=== PATIENT | male | born 1970 | race Caucasian/White ===

== ENCOUNTER 2023-01-24 07:32 | Outpatient (AMB) | payer OTHER, SELFPAY ==
[2023-01-24 07:47] VITALS: BP 128/88; PULSE 74; RESP 20; O2SAT 97; BMI 35.1
--- NOTE | 2023-01-24 07:47 | MHC.PC.OV ---
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 Pt was diagnosed with prostate ca in November and f/u with [facility]. He has been discussing option for treatment and is awaiting a 2nd opinion consultation at [facility] Family History Father Cardiac pacemaker BPH (benign prostatic hyperplasia) Mother No problems noted. Brother COVID Sister No problems noted. Sister No problems noted. 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 1. Little interest or pleasure in doing things: not at all 2. Feeling down, depressed, or hopeless: not at all 3. Trouble falling or staying asleep, or sleeping too much: not at all 4. Feeling tired or having little energy: not at all 5. Poor appetite or overeating: not at all 6. Feeling bad about yourself - or that you are a failure or have let yourself or your family down: not at all 7. Trouble concentrating on things, such as reading the newspaper or watching television: not at all 8. Moving or speaking so slowly that other people could have noticed. Or the opposite - being so fidgety or restless that you have been moving around a lot more than usual: not at all 9. Thoughts that you would be better off or of hurting yourself in some way: not at all Total score: 0 Depression Screening Interpretation: Negative [id number] - PHQ-9 Billing: Yes Source: Developed by Drs. Valeriano Garcia, Eneida Mendez, Jose Martin Mtz and colleagues, with an educational contreras from [employer]. Thrive Questionnaire Date Thrive assessed: 01/24/23 I am a: Patient What is your living situation today?: I have a steady place to live Within the past 12 months, did the food you bought not last and you didn't have the money to get more?: Never true Within the past 12 months, did you worry whether your food would run out before you got money to buy more?: Never true Do you have trouble paying for medicines?: No Do you have trouble getting transportation to medical appointments?: No Do you have trouble paying your heating and electricity bill?: No Do you have trouble taking care of your child, family member or friend?: No Do you have trouble with day-to-day activities such as bathing, preparing meals, shopping, managing finances, etc.?: No Are you currently unemployed and looking for a job?: No Are you interested in more education?: No Please select the resources that you would like help with: None Currently or been in a relationship where the following occur: no concerns reported AUDIT C Alcohol Use Questionnaire (AUDIT-C) 1. How often do you have a drink containing alcohol?: 2-4 times a month 2. How many drinks containing alcohol do you have on a typical day when you are drinking?: 3 or 4 3. How often do you have six or more drinks on one occasion?: Never Total Score: 3 ROSSANA-7 AMB Questionnaire ROSSANA-7 Date ROSSANA - 7 assessed: 01/24/23 Feeling nervous, anxious, or on edge: 0 = Not at all Not being able to stop or control worryin = Not at all Worrying too much about different things: 0 = Not at all Trouble relaxin = Not at all Being so restless that it is hard to sit still: 0 = Not at all Becoming easily annoyed or irritable: 0 = Not at all Feeling afraid as if something awful might happen: 0 = Not at all Total ROSSANA-7 score (0-4 normal; 5-9 mild; 10-14 moderate; 15-21 severe): 0 Source: Developed by Drs. Valeriano Garcia, Eneida Mendez, Jose Martin Mtz and colleagues, with an educational contreras from [employer]. ROSSANA-7 Assessment Billing ROSSANA-7 Assessment Tool: ROSSANA-7 Assessment 62567 Review of Systems Const All systems reviewed & are unremarkable except as noted in HPI and below Reports no additional complaints Eyes Reports no additional complaints ENT Reports no additional complaints Card Reports no additional complaints Resp Reports no additional complaints GI Reports no additional complaints Reports no additional complaints Musc Reports no additional complaints Physical exam (Primary Care) Vital Signs: Last Vital Signs Pulse 74 01/24/23 07:47 Resp 20 01/24/23 07:47 BP 128/88 01/24/23 07:47 Pulse Ox 97 01/24/23 07:47 Oxygen Delivery Method Room Air 01/24/23 07:47 BMI result Body Mass Index 35.1 Tobacco/Smoking Status: Tobacco use Status Tobacco use date assessed 01/24/23 01/24/23 07:56 Patient Tobacco Use Status Former Tobacco user 01/24/23 08:18 Tobacco use type Cigarette 01/24/23 08:18 e-Cigarette/Vaping Use Never Used 01/24/23 08:18 PHQ-9: PHQ-9 Score PHQ-9: Total score 0 01/24/23 08:08 Depression Screening Interpretation: Negative Thrive Assessment: Date of Thrive Assessment Date Thrive assessed 01/24/23 01/24/23 08:00 Currently or been in a relationship where the following occur: no concerns reported Const General: no acute distress HENMT Head: Yes normal to inspection Ears: hearing grossly normal bilaterally Face and sinus: Yes normal facial exam Mouth: Normal oral and palatal mucosa present Throat: Yes posterior oropharynx normal Eyes General: appearance normal, both eyes and all related structures Neck Neck: Yes no lymphadenopathy and Yes supple Resp Effort & Inspection: normal respiratory effort Auscultation: clear to auscultation bilaterally Cardio Rhythm: regular rhythm Heart sounds: S1 normal heart sound present and S2 normal heart sound present GI Inspection: Yes normal to inspection Palpation (GI): Soft to palpation Percussion: Yes normal to percussion Auscultation: normal bowel sounds Assessment and Plan Assessment & Plan (1) Prostate CA: Comment: f/u [facility] urology dxd 11/24 Code(s): C61 - Malignant neoplasm of prostate (2) Annual physical exam: Code(s): Z00.00 - Encounter for general adult medical examination without abnormal findings Plan: Well-balanced diet regular physical activity weight loss discussed with the patient. He had a blood work done this year and will obtain copy of the results and forward to the office. Patient will be referred to GI for colonoscopy preferable before starting treatment for prostate ca. Follow-up in 6 months or as needed (3) GERD (gastroesophageal reflux disease): Comment: once a week, EGD 6 years ago Code(s): K21.9 - Gastro-esophageal reflux disease without esophagitis Orders: Referrals Gastroenterology Referral C61 - Malignant neoplasm of prostate, Z00.00 - Encounter for general adult medical examination without abnormal findings Coding Level of Care Code New Pt Prev Care 40-64y(26717) Diagnoses Prostate CA C61 Annual physical exam Z00.00 GERD (gastroesophageal reflux disease) K21.9 Additional Codes ROSSANA-7 Assessment Billing - ROSSANA-7 Assessment Tool: ROSSANA-7 Assessment 35138 ([id number])
== END 2023-01-24 10:09 | disposition home or self-care (01) ==
PROVIDERS: Visit Provider Internal Medicine
DX: C61 Malignant neoplasm of prostate (principal); Z00.00 Encounter for general adult medical examination without abnormal findings; K21.9 Gastro-esophageal reflux disease without esophagitis
CPT/HCPCS: 99386

== ENCOUNTER 2023-02-28 12:47 | Outpatient (AMB) | payer OTHER, SELFPAY ==
[2023-02-28 12:55] VITALS: BP 131/85; PULSE 91; BMI 34.8
--- NOTE | 2023-02-28 12:55 | A.OFFVIS_ITS ---
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 CC: Patient's reports that the PT was diagnosed with pancreatic cancer by the end of November. Patient has never had a colonoscopy done before. 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 Primarily Lao speaking but understands S[place] T[place]an and accompanying him helps with interpretation as well. Patient is at average risk of colon cancer due to no family history of colon cancer or colon polyps in first degree relatives. Patient does not have any other gastrointestinal symptoms to include abdominal pain, nausea, vomiting, diarrhea, blood in stool, weight loss. Labs not available but pt reports having blood work done earlier this year at outside office and does not report anemia. He was also recently diagnosed with prostate ca and is scheduled to meet with his Urologist to go over tx options between surg vs XRT. PFSH Surgical History H/O shoulder surgery Family History Father Cardiac pacemaker BPH (benign prostatic hyperplasia) Mother No problems noted. Brother COVID Sister No problems noted. Sister No problems noted. 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 Current occupational exposures/hazards: No Cognitive needs: No Hearing needs: No Vision needs: No Review of Systems Const All systems reviewed & are unremarkable except as noted in HPI and below Physical Exam Vital Signs: Last Vital Signs Pulse 91 02/28/23 12:55 BP 131/85 10/27/23 12:55 BMI result Body Mass Index 34.8 Gen appear: NAD, well nourished HEENT: no icterus, no cervical lymphadenopathy Chest: clear to auscultation CVS: Regular S1/S2 Abd: soft, nontender, nondistended Ext: no peripheral edema Neuro: A/Ox3, noted to move all extremities spontaneously Assessment & Plan Assessment & Plan (1) Colon cancer screening: Code(s): Z12.11 - Encounter for screening for malignant neoplasm of colon (2) Prostate CA: Code(s): C61 - Malignant neoplasm of prostate Plan At average risk. Would recommend a screening colonoscopy to be booked. Pt aware that this will be booked on an elective basis. In the absence of any GI sx this should not have any bearing on his evaluation and tx for prostate ca. Split PEG prep instructions reviewed with the pt as well as his . Follow up after the colo as needed. Medications: New peg 3350-electrolytes 236-22.74-6.74 -5.86 gram (Golytely) as per split prep instructions, until fecal effluent is clear 240 mL PO Q10M 4,000 mL 0RF colonoscopy Coding Level of Care Code New Pt Level 4 (53934) Diagnoses Colon cancer screening Z12.11 Prostate CA C61
== END 2023-02-28 13:54 | disposition home or self-care (01) ==
PROVIDERS: PCP Internal Medicine; Visit Provider Internal Medicine
DX: Z12.11 Encounter for screening for malignant neoplasm of colon (principal); C61 Malignant neoplasm of prostate; Z01.818 Encounter for other preprocedural examination
CPT/HCPCS: 99204

== ENCOUNTER → 2023-02-28 12:47 | Outpatient (BNVA) | payer OTHER, SELFPAY | PROVIDERS: PCP Internal Medicine; Visit Provider Internal Medicine ==

== ENCOUNTER 2023-06-20 08:36 | Outpatient (AMB) | payer OTHER, SELFPAY ==
[2023-06-20 09:02] VITALS: BP 136/70; PULSE 91; TEMP 36.6; O2SAT 96; BMI 34.4
--- NOTE | 2023-06-20 09:02 | MHC.OFFWIV ---
Intake Vital Signs 06/20/23 09:02 Height 5 ft 11 in Weight 247 lb BMI 34.4 BP 136/70 Blood Pressure Location Lt brachial Position Sitting Pulse 91 Pulse Source Pulse Oximeter Temp 97.8 F Temp Source Temporal Artery Scan Pulse Oximetry (%) 96 Oxygen Delivery Method Room Air Intake Visit Reasons: EST/prostate surgery insc not healing(lobby) Intake Note: pt is here today for prostate surgery insc not healing Patient Tobacco Use Status: Former Tobacco user Allergies No Known Allergies Allergy (Verified 06/20/23 09:02) Do you need a note to return to daycare/school/sports/work: No HPI HPI Comments History of Present Illness Details 53 y/o male patient who presents to walk in clinic with c/o non-healing infected surgical incision on the abdomen. Pt had Lap prostatectomy 5 weeks ago for prostate CA. He has umbilical incision that is not healing well and infected, draining pus. He has an Appointment with [facility] Denies any systemic symptoms. Denies pain. [facility] Surgical History H/O shoulder surgery Family History Father Cardiac pacemaker BPH (benign prostatic hyperplasia) Mother No problems noted. Brother COVID Sister No problems noted. Sister No problems noted. 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 Current occupational exposures/hazards: No Cognitive needs: No Hearing needs: No Vision needs: No Review of Systems Const All systems reviewed & are unremarkable except as noted in HPI and below Physical Exam Vital Signs: Last Vital Signs Temp 97.8 F 06/20/23 09:02 Pulse 91 06/20/23 09:02 BP 136/70 06/20/23 09:02 Pulse Ox 96 06/20/23 09:02 Oxygen Delivery Method Room Air 06/20/23 09:02 BMI result Body Mass Index 34.4 Const General: comfortable and no acute distress Nutritional Appearance: overweight GI Inspection: Yes obesity Auscultation: normal bowel sounds Skin Other: Umbilical incision, red, swelling and pus drainage. Crusting yellow. Non tender. General skin exam: erythema and eschar Wounds: wounds noted (Abdomen - Other Trocar sites healing well) Assessment & Plan Assessment & Plan (1) Infected surgical wound: Code(s): T81.49XA - Infection following a procedure, other surgical site, initial encounter Plan: - Oral and Topical ABx -F/u with surgeon as scheduled - RTC with severe pain, nausea, vomiting, and high fevers Medications: New mupirocin 2% 1 appl topical BID 15 grams 0RF T81.49XA - Infection following a procedure, other surgical site, initial encounter doxycycline hyclate 100 mg PO BID 5 days 10 caps 0RF T81.49XA - Infection following a procedure, other surgical site, initial encounter Coding Level of Care Code Est Pt Level 3 (21273) Diagnoses Infected surgical wound T81.49XA Time Spent (min) 15
== END 2023-06-20 09:26 | disposition home or self-care (01) ==
PROVIDERS: PCP Internal Medicine; Visit Provider Nurse Practitioner Family
DX: T81.49XA Infection following a procedure, other surgical site, initial encounter (principal)
CPT/HCPCS: 99213

== ENCOUNTER 2023-07-28 09:52 | Outpatient (AMB) | payer OTHER, SELFPAY ==
[2023-07-28 10:06] VITALS: BP 120/78; PULSE 72; O2SAT 97; BMI 34.4
--- NOTE | 2023-07-28 10:06 | A.OFFPC_ITS ---
Vital Signs 07/28/23 10:06 Height 5 ft 11 in Weight 247 lb BMI 34.4 BP 120/78 Blood Pressure Location Lt brachial Position Sitting Pulse 72 Pulse Source Pulse Oximeter Pulse Oximetry (%) 97 Oxygen Delivery Method Room Air Intake Visit Reasons: 6 month fu Intake Note: Pt is here today for 6 months follow up visit. Pt is fasting today and would like to have blood work done. Allergies No Known Allergies Allergy (Verified 07/28/23 10:09) Medication List - Last Reconciled 07/28/23 by Soniya Cueva MD No Known Home Meds Tobacco use date assessed: 07/28/23 Dental Screening Dental Screen Date: 07/28/23 Did you have a dental visit in the last 12 months?: Yes Did you have a dental problem in the last 6 months where you did not have access to dental care?: No Was dental information given to patient?: Patient has dentist HPI 6 month fu HPI Details Pt presents for f/u prostatectomy at [facility] and will f/u with urology there. [facility] Surgical History H/O shoulder surgery Family History Father Cardiac pacemaker BPH (benign prostatic hyperplasia) Mother No problems noted. Brother COVID Sister No problems noted. Sister No problems noted. 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 1. Little interest or pleasure in doing things: not at all 2. Feeling down, depressed, or hopeless: not at all 3. Trouble falling or staying asleep, or sleeping too much: not at all 4. Feeling tired or having little energy: not at all 5. Poor appetite or overeating: not at all 6. Feeling bad about yourself - or that you are a failure or have let yourself or your family down: not at all 7. Trouble concentrating on things, such as reading the newspaper or watching television: not at all 8. Moving or speaking so slowly that other people could have noticed. Or the opposite - being so fidgety or restless that you have been moving around a lot more than usual: not at all 9. Thoughts that you would be better off or of hurting yourself in some way: not at all Total score: 0 Depression Screening Interpretation: Negative Depression Screening Done: Yes Source: Developed by Drs. Valeriano Garcia, Eneida Mendez, Jose Martin Mtz and colleagues, with an educational contreras from [employer]. Thrive Questionnaire Date Thrive assessed: 07/28/23 I am a: Patient What is your living situation today?: I have a steady place to live Within the past 12 months, did the food you bought not last and you didn't have the money to get more?: Never true Within the past 12 months, did you worry whether your food would run out before you got money to buy more?: Never true Do you have trouble paying for medicines?: No Do you have trouble getting transportation to medical appointments?: No Do you have trouble paying your heating and electricity bill?: No Do you have trouble taking care of your child, family member or friend?: No Do you have trouble with day-to-day activities such as bathing, preparing meals, shopping, managing finances, etc.?: No Are you currently unemployed and looking for a job?: No Are you interested in more education?: No Please select the resources that you would like help with: None Currently or been in a relationship where the following occur: no concerns reported THRIVE Score: 0 AUDIT C Alcohol Use Questionnaire (AUDIT-C) 1. How often do you have a drink containing alcohol?: Monthly or less 2. How many drinks containing alcohol do you have on a typical day when you are drinking?: 1 or 2 3. How often do you have six or more drinks on one occasion?: Never Total Score: 1 ROSSANA-7 AMB Questionnaire ROSSANA-7 Date ROSSANA - 7 assessed: 07/28/23 Feeling nervous, anxious, or on edge: 0 = Not at all Not being able to stop or control worryin = Not at all Worrying too much about different things: 0 = Not at all Trouble relaxin = Not at all Being so restless that it is hard to sit still: 0 = Not at all Becoming easily annoyed or irritable: 0 = Not at all Feeling afraid as if something awful might happen: 0 = Not at all Total ROSSANA-7 score (0-4 normal; 5-9 mild; 10-14 moderate; 15-21 severe): 0 Source: Developed by Drs. Valeriano Garcia, Eneida Mendez, Jose Martin Mtz and colleagues, with an educational contreras from [employer]. Review of Systems Const All systems reviewed & are unremarkable except as noted in HPI and below Reports no additional complaints Eyes Reports no additional complaints ENT Reports no additional complaints Card Reports no additional complaints Resp Reports no additional complaints GI Reports no additional complaints Reports no additional complaints Physical exam (Primary Care) Vital Signs: Last Vital Signs Pulse 72 07/28/23 10:06 BP 120/78 07/28/23 10:06 Pulse Ox 97 07/28/23 10:06 Oxygen Delivery Method Room Air 07/28/23 10:06 BMI result Body Mass Index 34.4 Tobacco/Smoking Status: Tobacco use Status Tobacco use date assessed 07/28/23 07/28/23 10:11 Patient Tobacco Use Status Former Tobacco user 07/28/23 10:11 Tobacco use type Cigarette 07/28/23 10:11 e-Cigarette/Vaping Use Never Used 07/28/23 10:11 PHQ-9: PHQ-9 Score PHQ-9: Total score 0 07/28/23 10:38 Depression Screening Interpretation: Negative Thrive Assessment: Date of Thrive Assessment Date Thrive assessed 07/28/23 07/28/23 10:18 Currently or been in a relationship where the following occur: no concerns reported Const General: no acute distress HENMT Head: Yes normal to inspection Ears: hearing grossly normal bilaterally Mouth: Normal oral and palatal mucosa present Eyes General: appearance normal, both eyes and all related structures Neck Neck: Yes no lymphadenopathy and Yes supple Resp Effort & Inspection: normal respiratory effort Auscultation: clear to auscultation bilaterally Cardio Rhythm: regular rhythm Heart sounds: S1 normal heart sound present and S2 normal heart sound present GI Inspection: Yes normal to inspection Palpation (GI): Soft to palpation Percussion: Yes normal to percussion Auscultation: normal bowel sounds Assessment and Plan Assessment & Plan (1) Prostate CA: Comment: s/p prostatectomy 07/26 [facility] Code(s): C61 - Malignant neoplasm of prostate Plan: check PSA, f/u with urology (2) Annual physical exam: Code(s): Z00.00 - Encounter for general adult medical examination without abnormal findings Plan: Well-balanced diet regular physical activity weight loss discussed with the patient return for physical in 6 months. Patient have a fasting blood work today Orders: Orders Lipid Panel Today C61 - Malignant neoplasm of prostate, Z00.00 - Encounter for general adult medical examination without abnormal findings UA w Microscopic Today C61 - Malignant neoplasm of prostate, Z00.00 - Encounter for general adult medical examination without abnormal findings PSA,Total (Free>4and<10) Today C61 - Malignant neoplasm of prostate, Z00.00 - Encounter for general adult medical examination without abnormal findings Comprehensive [place]tuck. Panel Fast Today C61 - Malignant neoplasm of prostate, Z00.00 - Encounter for general adult medical examination without abnormal findings Complete Blood Count Auto Diff Today C61 - Malignant neoplasm of prostate, Z00.00 - Encounter for general adult medical examination without abnormal findings Coding Level of Care Code Est Pt Level 3 (58123) Diagnoses Prostate CA C61 Annual physical exam Z00.00
== END 2023-07-28 10:50 | disposition home or self-care (01) ==
PROVIDERS: PCP Internal Medicine; Visit Provider Internal Medicine
DX: C61 Malignant neoplasm of prostate (principal); Z00.00 Encounter for general adult medical examination without abnormal findings
CPT/HCPCS: 99213

== ENCOUNTER 2023-07-28 10:44 | Outpatient (REF) | payer OTHER, SELFPAY ==
[2023-07-28 13:54] LABS: Appearance Urine Clear; Color Urine Yellow; Glucose Urine UA Negative (Negative); Leukocyte Esterase Urine Small (1+) (Negative); Nitrite Urine Negative (Negative); PH 5.5 (5.0-9.0); UMIC TRIGGER UA YES; Urine Blood Negative (Negative); Urine Ketones Negative (Negative); Urine Protein Negative (Neg-Trace)
[2023-07-28 13:55] LABS: MANUAL DIFF FLAG NO
[2023-07-28 13:59] LABS: Basophils Percent Auto 0.4 % (0-2); Eosinophils Absolute Auto 0.2 X10*3/uL (0.0-0.4); Eosinophils Percent Auto 3.4 % (0-4); Hematocrit 48.9 % (42.0-52.0); Hemoglobin 16.8 g/dl (14.0-18.0); Imm Gran Abs Auto 0.01 X10*3/uL (0.00-0.03); Imm Gran Pct Auto 0.1 % (0.0-0.4); Lymphocytes Absolute Auto 3.2 X10*3/uL (1.2-4.9); Lymphocytes Percent Auto 46.9 % (20-40); Mean Corpuscular HGB Conc 34.4 g/dl (31.0-36.0); Mean Corpuscular Hemoglobin 29.6 pg (27.0-33.0); Mean Corpuscular Volume 86.1 fL (80.0-98.0); Mean Platelet Volume 11.8 fL (9.4-12.4); Monocytes Absolute Auto 0.5 X10*3/uL (0.1-1.2); Monocytes Percent Auto 7.1 % (2-11); Neutrophils Absolute Auto 2.9 x10*3/uL (2.0-8.3); Neutrophils Percent Auto 42.1 % (45-73); Platelet Count 196 X10*3/uL (160-400); Red Blood Count 5.68 X10*6/uL (4.60-5.80); Red Cell Distribution Width 12.2 % (11.0-16.0); White Blood Count 6.8 X10*3/uL (4.8-10.8)
[2023-07-28 14:02] LABS: Bacteria Urine Trace (None Seen); Hyaline Casts Urine 0-2 /LPF (0-2); RBC Urine 0-2 /HPF (0-2); Squamous Epithelial Cell Urine 0-2 /HPF (0-2)
[2023-07-28 14:08] LABS: Alanine Aminotransferase 56 U/L (0-40); Albumin Level 4.4 g/dL (3.5-5.0); Alkaline Phosphatase 134 U/L (39-117); Anion Gap 14 (12-20); Aspartate Amino Transferase 33 U/L (5-37); Bilirubin Total 0.6 mg/dL (0.0-1.0); Blood Urea Nitrogen 16 mg/dL (9-16); Calcium 10.6 mg/dL (8.4-10.2); Carbon Dioxide 27 mmol/L (22-29); Chloride 107 mmol/L (96-108); Cholesterol 156 mg/dL (<200); Estimated Glomerular Filt Rate > 60; Glucose Fasting 95 mg/dL (60-99); HDL Cholesterol 42 mg/dL (>40); LDL Cholesterol Calculated 89 mg/dL (<100); Potassium 4.1 mmol/L (3.3-5.1); Sodium 144 mmol/L (135-145); Total Protein 7.9 g/dL (6.5-8.0); Triglycerides 129 mg/dL (<150)
[2023-07-28 14:34] LABS: PSA,Total (Free>4and<10) < 0.10 ng/mL (0.00-4.00)
== END 2023-07-28 10:45 | disposition home or self-care (01) ==
LOC: HO.HMGCLDS 10:44
PROVIDERS: PCP Internal Medicine; Visit Provider Internal Medicine
DX: Z00.00 Encounter for general adult medical examination without abnormal findings (principal); Z12.5 Encounter for screening for malignant neoplasm of prostate; Z13.6 Encounter for screening for cardiovascular disorders; C61 Malignant neoplasm of prostate
CPT/HCPCS: 36415; 80053; 80061; 81001; 84153; 85025

== ENCOUNTER 2023-09-12 07:02 | Outpatient (REF) | payer OTHER, SELFPAY ==
[2023-09-12 11:15] LABS: Alanine Aminotransferase 45 U/L (0-40); Albumin Level 4.4 g/dL (3.5-5.0); Alkaline Phosphatase 131 U/L (39-117); Aspartate Amino Transferase 33 U/L (5-37); Bilirubin Direct 0.3 mg/dL (0.0-0.5); Bilirubin Total 0.7 mg/dL (0.0-1.0); Total Protein 7.8 g/dL (6.5-8.0)
[2023-09-12 12:18] LABS: HBS Num1 0.37 mIU/mL (0-7.99); HBc Num1 0.13 S/CO (0.00-0.79); HBsAGNum1 0.25 S/CO (0.00-0.99); Hepatitis B Core Antibody Nonreactive (Nonreactive); Hepatitis B Surface Antigen Negative (Negative); ~HepC Num1 0.15 S/CO (0.00-0.79); ~Hepatitis B Surface Antibody NONREACTIVE (Nonreactive); ~Hepatitis C Antibody Nonreactive (Nonreactive)
== END 2023-09-12 07:03 | disposition home or self-care (01) ==
LOC: HO.HMGCLDS 07:02
PROVIDERS: PCP Internal Medicine; Visit Provider Internal Medicine
DX: R74.8 Abnormal levels of other serum enzymes (principal)
CPT/HCPCS: 36415; 80076; 86704; 86706; 86803; 87340

== ENCOUNTER 2023-09-24 10:27 | Outpatient (REF) | payer OTHER, SELFPAY ==
--- NOTE | ~2023-09-24 | US_ITS ---
EXAMINATION: US ABDOMEN LIMITED CLINICAL INFORMATION: Abnormal levels of other serum enzymes. Elevated liver enzymes. COMPARISON: None available. TECHNIQUE: Real-time imaging of the right upper quadrant abdominal viscera. Severely limited visualization due to bowel gas and body habitus. FINDINGS: PANCREAS: Limited visualization of pancreatic tail and head. Imaged portion of pancreatic body is unremarkable. LIVER: Increased hepatic parenchymal heterogeneity and echogenicity could be associated with hepatocellular disease/hepatic steatosis and substantially limits visualization. Correlation with liver function tests and clinical exam recommended to determine further management. GALLBLADDER: No gallstones. No gallbladder wall thickening. COMMON BILE DUCT: Normal in caliber measuring 0.3 cm in diameter. RIGHT KIDNEY: No hydronephrosis. No renal calculi. Limited visualization. The kidney measures 11.4 cm in maximum dimension. FREE FLUID: None. US/US abdomen limited IMPRESSION: Increased hepatic parenchymal heterogeneity and echogenicity could be associated with hepatocellular disease/hepatic steatosis and substantially limits visualization. Correlation with liver function tests and clinical exam recommended to determine further management.
== END 2023-09-24 10:28 | disposition home or self-care (01) ==
LOC: HO.HMGCX 10:27
PROVIDERS: PCP Internal Medicine; Visit Provider Internal Medicine
DX: R74.8 Abnormal levels of other serum enzymes (principal)
CPT/HCPCS: 76705

== ENCOUNTER 2023-10-13 12:55 | Day surgery (SDC) | payer OTHER, SELFPAY ==
--- NOTE | 2023-10-10 10:28 | HO.ANESPROP2 ---
Documented by User: Joyce Hicks NP 10/10/23 10:28 HPI - Anesthesia Eval Consult details Narrative: 53yo M for Colonoscopy [facility] Active Problems Active Problems: All Active Problems Elevated liver enzymes (Acute) Colon cancer screening (Acute) GERD (gastroesophageal reflux disease) (Acute) Prostate CA (Acute) Annual physical exam (Acute) Past Medical History Medical History (Updated 10/10/23 @ 10:10 by Patricia Elizondo RN) GERD (gastroesophageal reflux disease) History of prostate cancer Family History Family History Father Cardiac pacemaker BPH (benign prostatic hyperplasia) Mother No problems noted. Brother COVID Sister No problems noted. Sister No problems noted. 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 Housing: House Patient Tobacco Use Status: Former Tobacco user Tobacco use type: Cigarette Years Smoked: 20 years, smoked 1-2 ppd e-Cigarette/Vaping Use: Never Used Are you DNR?: No Advance Directives: No Advance Directives Information Provided: Yes Nutrition Risks: No Nutritional Risk service: No Current occupational status: employed 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 Current occupational exposures/hazards: No Cognitive needs: No Hearing needs: No Vision needs: No Meds Allergies Allergy/AdvReac Type Severity Reaction Status Date / Time No Known Allergies Allergy Verified 07/28/23 10:09 Home Medications ?Medication ?Instructions ?Recorded ?Confirmed ?Last Taken ?Type No Known Home Meds 07/28/23 07/28/23 Unknown History Assessment and Plan Assessment Anesthesia Assessment: Chart Reviewed Documented by User: Jie Hatfield MD 10/13/23 13:17 [facility] Past Medical History Medical History (Updated 10/10/23 @ 10:10 by Patricia Elizondo RN) GERD (gastroesophageal reflux disease) History of prostate cancer Family History Family History Father Cardiac pacemaker BPH (benign prostatic hyperplasia) Mother No problems noted. Brother COVID Sister No problems noted. Sister No problems noted. 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: House Patient Tobacco Use Status: Former Tobacco user Tobacco use type: Cigarette Years Smoked: 18 years, smoked 1-2 ppd e-Cigarette/Vaping Use: Never Used Are you DNR?: No Advance Directives: No Advance Directives Information Provided: Yes Nutrition Risks: No Nutritional Risk service: No Current occupational status: employed 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 Current occupational exposures/hazards: No Cognitive needs: No Hearing needs: No Vision needs: No Meds Allergies Allergy/AdvReac Type Severity Reaction Status Date / Time No Known Allergies Allergy Verified 07/28/23 10:09 Home Medications ?Medication ?Instructions ?Recorded ?Confirmed ?Last Taken ?Type No Known Home Meds 07/28/23 07/28/23 Unknown History Exam Airway Mallampati Class: II TM Dist: >3cm Neck ROM: Full Heart: rrr Lungs: cta Assessment and Plan Assessment Anesthesia Assessment: Anesthesia Plan Discussed Final Anesthetic Review Family History of Problems with Anesthesia: No History of Problems with Anesthesia: No NPO: Yes ASA Class: III Final Preanesthetic Review: No Changes in Pt Med Stat, Meds/Allgs Chart Reviewed, Consent Obtained/Reviewed and Anes Risks/Benef Reviewed Patient Risk: Low Procedure Risk: Low Anesthetic Plan Anesthetic Plan: MAC: Disposition: Standard PACU
[2023-10-13 13:07] VITALS: BMI 34.2
[2023-10-13] MEDS: Lactated Ringers 1,000 ML 100 ML IVCONT (13:14)
--- NOTE | 2023-10-13 13:16 | MHC.SHP ---
Pre-Procedural Eval Section A - 24 Hr Update-Section A only Date of Service: 10/13/23 The patient is an INPATIENT: No The patient has been examined within 24 hours of the surgical procedure. The History & Physical has been completed within 30 days and I have reviewed it.: No Section B - Complete if H&P > 30 days Chief Complaint: Colon cancer screening Relevant Social History: Tobacco Use Medical History: Significant History History of Previous Operations: Relevant previous surgery/procedure and date(s) (H/O shoulder surgery) Allergies: Allergies Allergy/AdvReac Type Severity Reaction Status Date / Time No Known Allergies Allergy Verified 07/28/23 10:09 Review of Systems Sugical H&P ROS: Negative: Constitution, Cardiovascular, Respiratory and Gastrointestinal Exam Surgical H&P Exam: Normal: Heart, Normal: Lungs, Normal: Extremities and Normal: Abdomen Plan Diagnosis/Plan: Unchanged I have reviewed the history and physical and performed a pertinent physical examination on my patient. No changes have occurred unless specified. Time Spent With Patient Time: Total time managing care of this patient today ____ minutes.
[2023-10-13 13:23] VITALS: BP 140/77; PULSE 88; RESP 18; TEMP 36.3; O2SAT 95
--- NOTE | 2023-10-13 14:03 | HO.OPN-COLON ---
Colonoscopy Operative Note Operative Note Date of Service: 10/13/23 Narrative: COLONOSCOPY TILL CECUM WITH SNARE POLYPECTOMY Pre-op diagnosis: Colon cancer screening (1st colonoscopy). Post-op diagnosis:? Colon polyp, Diverticulosis, hemorrhoids Endoscopist:? Tobi Bush MD Anesthesia:?MAC Consent: Indications for the procedure and potential complications of bleeding, perforation, reaction to medications and missed diagnosis were discussed with the patient with the help of a Ukrainian supervisor modern languages and informed consent was obtained. Instrument: Olympus CF H 190 L variable stiffness adult colonoscope Monitoring: Vital signs and clinical assessment, intermittent blood pressure monitoring, continuous EKG monitoring, Pulse oximetry and Carbon Dioxide monitoring were done throughout the procedure. Please see anesthesia flowsheet. Colon withdrawl time was 18 minutes. Procedure: The patient was placed in the left lateral decubitis position and pre-procedure medications were administered. After a digital rectal examination of the ano-rectum, the video colonoscope was inserted into the rectum and advanced through the colon to the cecum. The colonoscope was slowly withdrawn in a retrograde panoramic fashion and the colon mucosa was carefully examined including a retroflexed view of the rectum. Findings and interventions are described below. Procedure Difficulty: without difficulty Findings: Terminal Ileum: Not evaluated Cecum: Normal Ascending Colon: Normal Transverse Colon: A 7- 8 mm sessile polyp - removed with a hot snare Descending Colon: Moderate diverticulosis Sigmoid Colon: Moderate diverticulosis Rectum: Normal Ano-rectum: Moderate internal hemorrhoids Colon preparation: Good after copious irrigation and fair in the left colon due to undigested vegetable matter which could not be suctioned. [place] Bowel Preparation Scale Right colon; 2 Transverse colon: 2 Left colon; 1 (0 = Unprepared colon segment with mucosa not seen due to solid stool that cannot be cleared. 1 = Portion of mucosa of the colon segment seen, but other areas of the colon segment not well seen due to staining, residual stool and/or opaque liquid. 2 = Minor amount of residual staining, small fragments of stool and/or opaque liquid, but mucosa of colon segment seen well. 3 = Entire mucosa of colon segment seen well with no residual staining, small fragments of stool or opaque liquid) Impression and Post Procedure Diagnosis: Colonoscopy Findings: One small polyp was removed Moderate diverticulosis seen in the left colon Moderate hemorrhoids on retroflexed exam. Plan: Pt has a FU appointment on 12/17/[address] Castillo Repeat Colonoscopy in 3-5 years if polyp is adenomatous and due to fair prep in the left colon (Pt admitted to eating some bread at 2 pm the day before colonoscopy). Above findings were reviewed with the patient and relevant handouts were given and the discharge area.
[2023-10-13 14:04] VITALS: BP 110/76; PULSE 71; RESP 16; TEMP 36.3; O2SAT 95
[2023-10-13 14:19] VITALS: BP 129/89; PULSE 63; RESP 18; TEMP 36.5; O2SAT 96
== END 2023-10-13 15:20 | disposition home or self-care (01) ==
PROVIDERS: PCP Internal Medicine; Visit Provider Internal Medicine Gastroenterology
PROC: 0DJD8ZZ Inspection of Lower Intestinal Tract, Via Natural or Artificial Opening Endoscopic (ICD-10-PCS; CPT 45378; principal; 2023-10-13 13:50)
DX: Z12.11 Encounter for screening for malignant neoplasm of colon (principal); D12.3 Benign neoplasm of transverse colon; K57.30 Diverticulosis of large intestine without perforation or abscess without bleeding; K64.8 Other hemorrhoids
CPT/HCPCS: 45385; 88305; J2704

== ENCOUNTER → 2023-10-13 12:55 | Outpatient (BNV) | payer OTHER, SELFPAY | PROVIDERS: PCP Internal Medicine; Visit Provider Internal Medicine Gastroenterology | DX: Z12.11 Encounter for screening for malignant neoplasm of colon (principal); D12.3 Benign neoplasm of transverse colon; K57.90 Diverticulosis of intestine, part unspecified, without perforation or abscess without bleeding; K64.8 Other hemorrhoids | CPT/HCPCS: 45385 ==

== ENCOUNTER 2023-12-17 11:45 | Outpatient (AMB) | payer SELFPAY ==
--- NOTE | 2023-12-17 11:49 | A.OFFVIS_ITS ---
Vital Signs 12/17/23 11:50 Height 5 ft 11 in Weight 250 lb BMI 34.9 BP 129/75 Blood Pressure Location Lt brachial Position Sitting Pulse 100 Intake Visit Reasons: s/p colon Intake Note: Patient follow up for Colonoscopy results Patient denies any GI issues. 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 No abd complaints today. Deridder 10/13/23: fair prep on L side. 7-8 mm TA in transverse colon. [facility] Medical History (Updated 12/17/23 @ 16:19 by Patricia Castillo MD) GERD (gastroesophageal reflux disease) History of prostate cancer Surgical History History of esophagogastroduodenoscopy (EGD) Hx of prostatectomy H/O shoulder surgery Family History Father Cardiac pacemaker BPH (benign prostatic hyperplasia) Mother No problems noted. Brother COVID Sister No problems noted. Sister No problems noted. 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 Due to prep quality recommend follow up colo in 5 years. Reminder set and bulletin board updated. Pt to follow up PRN in the interim. Coding Level of Care Code Est Pt Level 3 (03330) Diagnoses Personal history of colonic polyps Z86.010
[2023-12-17 11:50] VITALS: BP 129/75; PULSE 100; BMI 34.9
== END 2023-12-17 12:00 | disposition home or self-care (01) ==
PROVIDERS: PCP Internal Medicine; Visit Provider Internal Medicine
DX: Z86.010 Personal history of colon polyps (principal)
CPT/HCPCS: 99213

== ENCOUNTER → 2023-12-17 11:45 | Outpatient (BNVA) | payer SELFPAY | PROVIDERS: PCP Internal Medicine; Visit Provider Internal Medicine | DX: D12.3 Benign neoplasm of transverse colon (principal); Z98.890 Other specified postprocedural states | CPT/HCPCS: 99212 ==